=== PATIENT | female | born 2000 | race Caucasian/White ===

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

== ENCOUNTER 2024-07-13 08:34 | Inpatient (IN) ==
[2024-07-13] MEDS ORDERED: OXYTOCIN 30 UNITS/NSS 30 UNITS/500 ML BAG IV PRN (09:03)
[2024-07-13] MEDS ORDERED: LIDOCAINE 1% LOCAL 20 ML VIAL INFIL PRN (09:03)
--- NOTE | 2024-07-13 09:09 | History & Physical Report ---
Date of Service July 13, 2024 Assessment & Plan (1) Encounter for induction of labor: Plan admit,labs, iv. pitocin. fhts categ 1. epidural when desires. Admission and Anticipated Discharge Date Admission Date: July 13, 2024 History of Present Illness Chief Complaint: induction Primary Care Provider: Erin Taveras MD 23yo at 40+wks reyna presents to LD with above cc. She is ready for postdates induction. No rom, no vb. +FM. No ctx. Had some incr eased cramps overnight. PNC uncomplicated PNL rhpos, ri, gbs neg OBH: g1 GYNH: nl paps no stds. Allergies Allergy/AdvReac Type Severity Reaction Status Date / Time No Known Allergies Allergy Unverified 07/12/24 15:27 Home Medications Medication Instructions Recorded Confirmed Type PNV no.[id number] 1 tab PO DAILY 11/26/23 07/13/24 History [ Gummies] Patient History Medical History (Updated 07/13/24 @ 13:16 by Hafsa Membreno MD, FACOG) Asthma (12/18/12) Esophageal reflux (12/18/12) Varicella vaccination Kidney stones Surgical History (Updated 07/13/24 @ 09:46 by Leah Herrera, RN) Hx of adenoidectomy S/P myringotomy with insertion of tube (12/18/12) S/P wisdom tooth extraction Family History Aunt Breast cancer Denies family history of Ovarian cancer Prostate cancer Myocardial infarction Colorectal cancer Social History (Updated 11/26/23 @ 15:06 by Erin Calderon) Smoking Status: Never smoker Do You Dip or Chew Tobacco: No; Hx Alcohol Use: No Hx Substance Use: No Preferred Language: American Communication Ability: Effective Ux Designer Required: No Beliefs That Will Affect Care: None marital status: marital status details: Nitesh Cabrera (28) [phone] Current Living Situation: Spouse Current Living Situation Comment: lives with spouse, dog current occupational status: employed current occupation: [employer] Other Information That Helps Us Care for You: No Feels Safe at Home: Yes Safety Concerns: Feels Safe At This Time Review of Systems as per Subjective / HPI Physical Exam Constitutional: WD/WN, vitals as above Respiratory: normal respiratory effort, lungs clear to auscultation Cardiovascular: Rate/Rhythm: regular rate and regular rhythm Gastrointestinal (Abdomen): soft gravid nt efw 7-8# Musculoskeletal: no edema nontender calves Neurologic: grossly normal Psychiatric: A+Ox3, euthymic affect Genitourinary: Manual OB Exam: + cervical dilation (2-3), + cervical effacement 80%, + station -2 and + amniotic fluid (arom) clear OB Exam Monitor Tracing: + external FHT monitor used, + external uterine monitor used, + category I and + normal FHT variability Coding Level of Care Code None Diagnoses Encounter for induction of labor Z34.90
[2024-07-13 09:33] LABS: Hematocrit (blood only) 34.2 % (37.0-47.0); Hemoglobin 11.9 g/dl (12.0-16.0); Mean Corpuscular Hemoglobin 32.5 pg (25.0-34.0); Mean Corpuscular Hgb Conc 34.8 g/dL (32.0-36.0); Mean Corpuscular Volume 93.4 fL (80.0-100.0); Mean Platelet Volume 11.3 fL (9.4-12.4); Platelet Count 236 K/uL (130-400); RDW Coefficient of Variation 12.2 % (11.5-14.5); RDW Standard Deviation 42.2 fL (36.4-46.3); Red Blood Count 3.66 M/uL (4.20-5.40); White Blood Count 11.01 K/ul (4.8-10.8)
[2024-07-13] MEDS: OXYTOCIN 30 UNITS/NSS 30 UNITS/500 ML BAG IV PRN (10:24)
[2024-07-13] MEDS: LACTATED RINGER'S 1,000 ML IV SCH (11:15)
[2024-07-13] MEDS ORDERED: ePHEDrine sulfate 50 MG/ML AMP ONE (13:56)
--- NOTE | 2024-07-13 14:13 | Anesthesiology Consultation ---
Date of Service July 13, 2024 Assessment & Plan Chart Review Chart Review: Patient NOT seen in Pre Admission Testing and Acceptable Risk for Labor Epidural Consults Requested none ASA ASA2 Proposed Anesthesia Anesthesia Type: Labor Epidural Risk / Benefits Reviewed With: PT / POA / Parent / Guardian, Accepts Plan and Informed Consent Obtained History Height/Weight Height: 5 ft 3 in Weight: 82.1 kg Allergies Allergy/AdvReac Type Severity Reaction Status Date / Time No Known Allergies Allergy Unverified 07/12/24 15:27 Medications Home Medications Medication Instructions Recorded Confirmed Last Taken PNV no.[id number] 1 tab PO DAILY 11/26/23 07/13/24 07/13/24 08:00 [ Gummies] Active Medications Generic Name Dose Route Start Last Admin Trade Name Freq PRN Reason Stop Dose Admin Oxytocin 30 units in 500 mls @ 5 mls/hr 07/13/24 09:05 07/13/24 11:30 Pitocin 30 Units/Nss IV 07/15/24 09:04 0.3 units/hr .Q24H PRN 5 mls/hr Labor Induction/Augmentation Titration Protocol 0.3 UNITS/HR Lactated Ringer's 1,000 mls @ 75 mls/hr 07/13/24 11:15 07/13/24 14:00 Lr IV 07/14/24 11:14 999 mls/hr .[id number] FRANCO Infusion NPO Date Last Intake of Fluids: 07/13/24 Time Last Intake of Fluids: 14:00 Date Last Intake of Solids: 07/13/24 Time Last Intake of Solids: 11:45 Past Medical History Medical History (Updated 07/13/24 @ 13:16 by Hafsa Membreno MD, FACOG) Asthma (12/18/12) Esophageal reflux (12/18/12) Varicella vaccination Kidney stones Exercise / Class Metabolic Activity 1 > 8 Run/Swim/Ski/Tennis Past Family History Family History Aunt Breast cancer Denies family history of Ovarian cancer Prostate cancer Myocardial infarction Colorectal cancer Past Surgical History Surgical History (Updated 07/13/24 @ 09:46 by Leah Herrera RN) Hx of adenoidectomy S/P myringotomy with insertion of tube (12/18/12) S/P wisdom tooth extraction Past Anesthesia History No Hx of Anesthesia Complications and No Family Hx of Anesthesia Complications History of PONV No Hx of PONV and No Hx of Motion Sickness Social History Smoking Status: Never smoker Do You Dip or Chew Tobacco: No Hx Alcohol Use: No Hx Substance Use: No Review of Systems ROS Unobtainable: All systems reviewed & are unremarkable except as noted in HPI & below Physical Exam Vital Signs Last Vital Signs Temp 36.9 C 07/13/24 12:30 Pulse 86 07/13/24 13:14 Resp 20 07/13/24 13:30 BP 133/87 07/13/24 13:14 ENMT Mouth: no TMJ abnormality Thyromental Distance: > or= 3.5 Finger Breadths Mallampati Class: II Neck normal visual inspection and trachea midline; neck extension not limited Respiratory normal respiratory effort Auscultation: lungs clear to auscultation bilaterally Cardiovascular Rate/Rhythm: regular rate and regular rhythm Heart Sounds: no murmur Musculoskeletal Spine: normal cervical ROM Extremities: full ROM of extremities Neurologic moves all extremities Psychiatric Orientation: alert and oriented x 3 Testing Laboratory Results 07/13/24 09:14
[2024-07-13] MEDS ORDERED: ePHEDrine sulfate 50 MG/ML AMP IV PRN (14:14)
[2024-07-13] MEDS ORDERED: NALBUPHINE HCL INJ 10 MG/ML AMP IV PRN (14:14)
[2024-07-13] MEDS ORDERED: ROPIVACAINE 0.5% PF 5 MG/ML 20 ML VIAL EPI PRN (14:14)
[2024-07-13] MEDS ORDERED: NALOXONE HCL 1 MG in SODIUM CHLORIDE 0.9% 1,000 ML IV PRN (14:14)
[2024-07-13] MEDS ORDERED: diphenhydrAMINE 50 MG/ML VIAL IV PRN (14:14)
[2024-07-13] MEDS ORDERED: LIDOCAINE 2% MPF LOCAL 5 ML VIAL EPI PRN (14:14)
[2024-07-13] MEDS ORDERED: SODIUM CHLORIDE 0.9% PF INJ 10 ML VIAL EPI PRN (14:14)
[2024-07-13] MEDS ORDERED: NALOXONE HCL 0.4 MG/1 ML VIAL/CARP IV PRN (14:14)
[2024-07-13] MEDS: LIDOCAINE 2%/EPINEPHRINE 1:200,000 20 ML PF ONE (14:36)
[2024-07-13] MEDS: fentANYL 2 MCG/ML BUPIVacaine 0.125%-NSS 100ML BAG ONE (14:36)
[2024-07-13] MEDS: fentaNYL citrate PF 100 MCG/2 ML VIAL ONE (14:42)
[2024-07-13] MEDS: BUPIVACAINE 0.25% PF 30 ML VIAL ONE (14:42)
--- NOTE | 2024-07-13 15:48 | Labor Progress Brief Note ---
Date of Service July 13, 2024 Subjective comfortable with epidural Assessment & Plan (1) Encounter for induction of labor: Plan will plan to cont pitocin, fhts categ 1. Admission and Anticipated Discharge Date Admission Date: July 13, 2024 Physical Exam Constitutional: WD/WN, vitals as above Genitourinary: Manual OB Exam: + cervical dilation 3 cm, + cervical effacement 80% and + station -2 OB Exam Monitor Tracing: + external FHT monitor used, + external uterine monitor used (pit at 3), + category I and + normal FHT variability Results & Data Vital Signs (Past 12 Hours) Vital Signs Temp Pulse Resp BP Pulse Ox 07/13/24 15:42 74 108/69 97 07/13/24 15:37 72 97 07/13/24 15:32 74 97 07/13/24 15:30 16 07/13/24 15:30 16 07/13/24 15:28 75 107/67 07/13/24 15:27 73 98 07/13/24 15:22 82 97 07/13/24 15:17 78 98 07/13/24 15:12 86 98 07/13/24 15:11 95 H 101/72 07/13/24 15:07 75 98 07/13/24 15:06 76 100/65 07/13/24 15:02 78 92/50 L 99 07/13/24 15:00 16 07/13/24 15:00 98.1 F 16 07/13/24 14:57 93 H 98 07/13/24 14:55 107 H 105/56 L 07/13/24 14:53 96 H 104/61 07/13/24 14:52 88 99 07/13/24 14:51 81 113/59 L 07/13/24 14:50 16 07/13/24 14:50 16 07/13/24 14:49 93 H 104/62 07/13/24 14:47 99 07/13/24 14:47 91 H 07/13/24 14:47 99 H 107/66 07/13/24 14:45 85 18 108/67 07/13/24 14:43 76 113/65 07/13/24 14:42 98 H 100 07/13/24 14:41 88 111/68 07/13/24 14:40 16 07/13/24 14:40 16 07/13/24 14:39 86 113/65 07/13/24 14:37 89 113/63 100 07/13/24 14:35 85 123/65 07/13/24 14:33 86 128/76 07/13/24 14:32 82 L 07/13/24 14:32 91 H 07/13/24 14:32 95 H 93 07/13/24 14:31 90 137/91 07/13/24 14:29 76 137/87 07/13/24 14:27 88 100 07/13/24 14:22 121 H 100 07/13/24 14:20 93 H 139/76 07/13/24 14:18 93 H 91 07/13/24 14:17 89 100 07/13/24 14:12 93 H 100 07/13/24 13:30 20 07/13/24 13:30 20 07/13/24 13:14 86 133/87 07/13/24 13:00 20 07/13/24 13:00 20 07/13/24 12:30 98.4 F 07/13/24 12:26 72 123/79 07/13/24 11:31 76 113/69 07/13/24 11:30 98.1 F 07/13/24 10:28 105 H 113/78 07/13/24 09:50 97.5 F L 07/13/24 09:20 98.2 F 20 07/13/24 09:19 107 H 114/79 Coding Level of Care Code None Diagnoses Encounter for induction of labor Z34.90
--- NOTE | 2024-07-13 18:10 | Labor Progress Brief Note ---
Date of Service July 13, 2024 Subjective comfortable, did get a nap Assessment & Plan (1) Encounter for induction of labor: Plan some cx change. pitocin at 9, iupc placed to help guide use of pitocin. fhts categ 1. discussed iupc use and rationale to couple. Admission and Anticipated Discharge Date Admission Date: July 13, 2024 Physical Exam Constitutional: WD/WN, vitals as above Genitourinary: Manual OB Exam: + cervical dilation 4 cm, + cervical effacement 80% and + station -2 OB Exam Monitor Tracing: + external FHT monitor used, + external uterine monitor used, + category I and + normal FHT variability Results & Data Vital Signs (Past 12 Hours) Vital Signs Temp Pulse Resp BP Pulse Ox 07/13/24 18:06 90 90 07/13/24 18:02 77 100 07/13/24 18:00 18 07/13/24 18:00 18 07/13/24 17:59 87 89 L 07/13/24 17:57 83 100 07/13/24 17:52 93 H 100 07/13/24 17:49 99 H 91 07/13/24 17:47 80 100 07/13/24 17:43 91 H 88 L 07/13/24 17:42 84 98/61 L 100 07/13/24 17:38 84 92 07/13/24 17:37 91 H 98 07/13/24 17:32 97 H 100 07/13/24 17:30 16 07/13/24 17:30 98.4 F 16 07/13/24 17:27 87 L 07/13/24 17:27 98 H 07/13/24 17:27 104 H 93 07/13/24 17:22 86 99 07/13/24 17:17 90 99 07/13/24 17:13 85 113/77 07/13/24 17:12 78 99 07/13/24 17:07 77 99 07/13/24 17:02 71 99 07/13/24 17:00 16 07/13/24 17:00 16 07/13/24 16:58 72 115/73 07/13/24 16:57 81 98 07/13/24 16:52 75 98 07/13/24 16:47 67 98 07/13/24 16:43 76 117/78 07/13/24 16:42 73 98 07/13/24 16:37 74 98 07/13/24 16:32 70 98 07/13/24 16:28 80 117/77 07/13/24 16:27 82 98 07/13/24 16:22 73 98 07/13/24 16:17 73 98 07/13/24 16:13 80 113/72 07/13/24 16:12 85 98 07/13/24 16:07 73 98 07/13/24 16:02 75 98 07/13/24 16:00 18 07/13/24 16:00 18 07/13/24 15:57 77 109/69 98 07/13/24 15:52 79 97 07/13/24 15:47 79 97 07/13/24 15:42 74 108/69 97 07/13/24 15:37 72 97 07/13/24 15:32 74 97 07/13/24 15:30 16 07/13/24 15:30 16 07/13/24 15:28 75 107/67 07/13/24 15:27 73 98 07/13/24 15:22 82 97 07/13/24 15:17 78 98 07/13/24 15:12 86 98 07/13/24 15:11 95 H 101/72 07/13/24 15:07 75 98 07/13/24 15:06 76 100/65 07/13/24 15:02 78 92/50 L 99 07/13/24 15:00 16 07/13/24 15:00 98.1 F 16 07/13/24 14:57 93 H 98 07/13/24 14:55 107 H 105/56 L 07/13/24 14:53 96 H 104/61 07/13/24 14:52 88 99 07/13/24 14:51 81 113/59 L 07/13/24 14:50 16 07/13/24 14:50 16 07/13/24 14:49 93 H 104/62 07/13/24 14:47 99 07/13/24 14:47 91 H 07/13/24 14:47 99 H 107/66 07/13/24 14:45 85 18 108/67 07/13/24 14:43 76 113/65 07/13/24 14:42 98 H 100 07/13/24 14:41 88 111/68 07/13/24 14:40 16 07/13/24 14:40 16 07/13/24 14:39 86 113/65 07/13/24 14:37 89 113/63 100 07/13/24 14:35 85 123/65 07/13/24 14:33 86 128/76 07/13/24 14:32 82 L 07/13/24 14:32 91 H 07/13/24 14:32 95 H 93 07/13/24 14:31 90 137/91 07/13/24 14:29 76 137/87 07/13/24 14:27 88 100 07/13/24 14:22 121 H 100 07/13/24 14:20 93 H 139/76 07/13/24 14:18 93 H 91 07/13/24 14:17 89 100 07/13/24 14:12 93 H 100 07/13/24 13:30 20 07/13/24 13:30 20 07/13/24 13:14 86 133/87 07/13/24 13:00 20 07/13/24 13:00 20 07/13/24 12:30 98.4 F 07/13/24 12:26 72 123/79 07/13/24 11:31 76 113/69 07/13/24 11:30 98.1 F 07/13/24 10:28 105 H 113/78 07/13/24 09:50 97.5 F L 07/13/24 09:20 98.2 F 20 07/13/24 09:19 107 H 114/79 Coding Level of Care Code None Diagnoses Encounter for induction of labor Z34.90
[2024-07-13] MEDS: fentaNYL citrate PF 100 MCG/2 ML VIAL EPI STA (19:27)
[2024-07-13] MEDS: LIDOCAINE 2%/EPINEPHRINE 1:200,000 20 ML PF EPI STA (19:27)
[2024-07-13] MEDS: BUPIVACAINE 0.25% PF 30 ML VIAL EPI STA (19:27)
[2024-07-13] MEDS: SODIUM CHLORIDE 0.9% PF INJ 10 ML VIAL ONE (19:27)
[2024-07-13] MEDS: ACETAMINOPHEN 325 MG TAB PO ONE (19:34)
--- NOTE | 2024-07-13 19:38 | Labor Progress Brief Note ---
Date of Service July 13, 2024 Subjective comfortable, eating adelsollo Assessment & Plan (1) Encounter for induction of labor: Plan cont with pit to keep mvu's adequate. good cx change. fhts categ 1. Admission and Anticipated Discharge Date Admission Date: July 13, 2024 Physical Exam Constitutional: WD/WN, vitals as above Genitourinary: Manual OB Exam: + cervical dilation 6 cm, + cervical effacement 80% and + station -1 OB Exam Monitor Tracing: + external FHT monitor used, + intra-uterine pressure catheter used (mvus adeq, c/w pit), + category I and + normal FHT variability Results & Data Vital Signs (Past 12 Hours) Vital Signs Temp Pulse Resp BP Pulse Ox 07/13/24 19:34 89 91 07/13/24 19:32 96 H 98 07/13/24 19:27 85 99 07/13/24 19:23 80 93 07/13/24 19:22 77 100 07/13/24 19:17 80 96 07/13/24 19:15 80 90 07/13/24 19:12 72 100 07/13/24 19:07 74 88 L 07/13/24 19:06 87 89 L 07/13/24 19:02 79 100 07/13/24 18:58 76 119/87 07/13/24 18:57 78 100 07/13/24 18:52 70 100 07/13/24 18:47 73 100 07/13/24 18:43 70 116/71 07/13/24 18:42 70 100 07/13/24 18:37 86 99 07/13/24 18:32 77 100 07/13/24 18:30 20 07/13/24 18:30 98.1 F 20 07/13/24 18:28 68 110/61 07/13/24 18:27 73 100 07/13/24 18:22 71 100 07/13/24 18:17 91 H 96 07/13/24 18:14 77 91 07/13/24 18:13 71 115/61 07/13/24 18:12 72 99 07/13/24 18:07 78 100 07/13/24 18:06 90 90 07/13/24 18:02 77 100 07/13/24 18:00 18 07/13/24 18:00 18 07/13/24 17:59 87 89 L 07/13/24 17:57 83 100 07/13/24 17:52 93 H 100 07/13/24 17:49 99 H 91 07/13/24 17:47 80 100 07/13/24 17:43 91 H 88 L 07/13/24 17:42 84 98/61 L 100 07/13/24 17:38 84 92 07/13/24 17:37 91 H 98 07/13/24 17:32 97 H 100 07/13/24 17:30 16 07/13/24 17:30 98.4 F 16 07/13/24 17:27 87 L 07/13/24 17:27 98 H 07/13/24 17:27 104 H 93 07/13/24 17:22 86 99 07/13/24 17:17 90 99 07/13/24 17:13 85 113/77 07/13/24 17:12 78 99 07/13/24 17:07 77 99 07/13/24 17:02 71 99 07/13/24 17:00 16 07/13/24 17:00 16 07/13/24 16:58 72 115/73 07/13/24 16:57 81 98 07/13/24 16:52 75 98 07/13/24 16:47 67 98 07/13/24 16:43 76 117/78 07/13/24 16:42 73 98 07/13/24 16:37 74 98 07/13/24 16:32 70 98 07/13/24 16:28 80 117/77 07/13/24 16:27 82 98 07/13/24 16:22 73 98 07/13/24 16:17 73 98 07/13/24 16:13 80 113/72 07/13/24 16:12 85 98 07/13/24 16:07 73 98 07/13/24 16:02 75 98 07/13/24 16:00 18 07/13/24 16:00 18 07/13/24 15:57 77 109/69 98 07/13/24 15:52 79 97 07/13/24 15:47 79 97 07/13/24 15:42 74 108/69 97 07/13/24 15:37 72 97 07/13/24 15:32 74 97 07/13/24 15:30 16 07/13/24 15:30 16 07/13/24 15:28 75 107/67 07/13/24 15:27 73 98 07/13/24 15:22 82 97 07/13/24 15:17 78 98 07/13/24 15:12 86 98 07/13/24 15:11 95 H 101/72 07/13/24 15:07 75 98 07/13/24 15:06 76 100/65 07/13/24 15:02 78 92/50 L 99 07/13/24 15:00 16 07/13/24 15:00 98.1 F 16 07/13/24 14:57 93 H 98 07/13/24 14:55 107 H 105/56 L 07/13/24 14:53 96 H 104/61 07/13/24 14:52 88 99 07/13/24 14:51 81 113/59 L 07/13/24 14:50 16 07/13/24 14:50 16 07/13/24 14:49 93 H 104/62 07/13/24 14:47 99 07/13/24 14:47 91 H 07/13/24 14:47 99 H 107/66 07/13/24 14:45 85 18 108/67 07/13/24 14:43 76 113/65 07/13/24 14:42 98 H 100 07/13/24 14:41 88 111/68 07/13/24 14:40 16 07/13/24 14:40 16 07/13/24 14:39 86 113/65 07/13/24 14:37 89 113/63 100 07/13/24 14:35 85 123/65 07/13/24 14:33 86 128/76 07/13/24 14:32 82 L 07/13/24 14:32 91 H 07/13/24 14:32 95 H 93 07/13/24 14:31 90 137/91 07/13/24 14:29 76 137/87 07/13/24 14:27 88 100 07/13/24 14:22 121 H 100 07/13/24 14:20 93 H 139/76 07/13/24 14:18 93 H 91 07/13/24 14:17 89 100 07/13/24 14:12 93 H 100 07/13/24 13:30 20 07/13/24 13:30 20 07/13/24 13:14 86 133/87 07/13/24 13:00 20 07/13/24 13:00 20 07/13/24 12:30 98.4 F 07/13/24 12:26 72 123/79 07/13/24 11:31 76 113/69 07/13/24 11:30 98.1 F 07/13/24 10:28 105 H 113/78 07/13/24 09:50 97.5 F L 07/13/24 09:20 98.2 F 20 07/13/24 09:19 107 H 114/79 Coding Level of Care Code None Diagnoses Encounter for induction of labor Z34.90
[2024-07-13] MEDS: fentANYL 2 MCG/ML BUPIVacaine 0.125%-NSS 100ML BAG EPI PRN (22:34)
[2024-07-13] MEDS: SODIUM CHLORIDE 0.9% PF INJ 10 ML VIAL EPI STA (23:09)
[2024-07-13] MEDS: fentaNYL citrate PF 100 MCG/2 ML VIAL EPI PRN (23:09)
[2024-07-13] MEDS: BUPIVACAINE 0.25% PF 30 ML VIAL EPI PRN (23:09)
--- NOTE | 2024-07-13 23:27 | Anesthesia Procedure Note ---
Date of Service July 13, 2024 Anesthesia Epidural Re-Dose Vital Signs Temp Pulse Resp BP Pulse Ox 36.8 C 101 H 18 115/68 95 07/13/24 23:00 07/13/24 23:22 07/13/24 23:00 07/13/24 23:20 07/13/24 23:22 Notes Pain Intensity: 4 Dilatation (cm): 6.0 Effacement (%): 80 Called by nursing to evaluate epidural as the patient is having increased pain. The epidural was re-dosed with the following medications (all medications via epidural route) after negative aspiration of the epidural catheter for CSF/HEME. 0.2 Ropivacaine ml via epidural After Epidural Re-Dose Mental Status: alert / awake / arousable and participated in evaluation Pain: improving with treatment Airway Patency, RR, SpO2: stable & adequate BP & HR: stable & adequate Additional Notes: Redosed patient with 6 cc of 0.125% bupi and 100 mcg fentanyl with improvement of pain. HDS.
[2024-07-14] MEDS: ACETAMINOPHEN 325 MG TAB PO ONE (05:02)
--- NOTE | 2024-07-14 07:00 | Labor Progress Brief Note ---
Date of Service July 14, 2024 Subjective late entry, examined around 4am. comfortable. Assessment & Plan (1) Encounter for induction of labor: Plan rec position change, knee chest if possible to enc cephalic rotation and facilitate complete dilation. fhts categ 1. advised nursing to reexamine in one hr and start pushing if appropriate. Admission and Anticipated Discharge Date Admission Date: July 13, 2024 Physical Exam Constitutional: WD/WN, vitals as above Genitourinary: Manual OB Exam: + cervical dilation (ant lip OP), + cervical effacement 100% and + station (pushed x 1 ineffective and lip remained, lechuga had been removed. ) + 2 OB Exam Monitor Tracing: + external FHT monitor used, + intra-uterine pressure catheter used, + category I and + normal FHT variability Results & Data Vital Signs (Past 12 Hours) Vital Signs Temp Pulse Resp BP Pulse Ox 07/14/24 06:54 130 H 98 07/14/24 06:53 148 H 85 L 07/14/24 06:50 123 H 127/80 07/14/24 06:49 125 H 98 07/14/24 06:45 133 H 84 L 07/14/24 06:44 124 H 98 07/14/24 06:39 128 H 97 07/14/24 06:35 121 H 120/68 07/14/24 06:34 127 H 97 07/14/24 06:29 173 H 91 07/14/24 06:27 145 H 82 L 07/14/24 06:24 181 H 99 07/14/24 06:21 123 H 133/78 07/14/24 06:19 121 H 99 07/14/24 06:13 108 H 99 07/14/24 06:08 107 H 100 07/14/24 06:05 104 H 129/94 07/14/24 06:03 107 H 99 07/14/24 06:00 18 07/14/24 06:00 98.8 F 18 07/14/24 05:58 114 H 98 07/14/24 05:53 118 H 99 07/14/24 05:50 114 H 123/84 07/14/24 05:48 112 H 100 07/14/24 05:43 133 H 100 07/14/24 05:35 102 H 122/63 07/14/24 05:32 100 H 100 07/14/24 05:27 100 H 100 07/14/24 05:22 103 H 100 07/14/24 05:20 100 H 125/67 07/14/24 05:17 103 H 100 07/14/24 05:12 102 H 100 07/14/24 05:07 108 H 100 07/14/24 05:05 122/63 07/14/24 05:02 117 H 100 07/14/24 05:00 18 07/14/24 05:00 18 07/14/24 04:57 105 H 100 07/14/24 04:52 108 H 100 07/14/24 04:50 108 H 121/65 07/14/24 04:47 114 H 100 07/14/24 04:42 121 H 100 07/14/24 04:37 118 H 100 07/14/24 04:36 115 H 117/58 L 07/14/24 04:32 119 H 100 07/14/24 04:30 20 07/14/24 04:30 20 07/14/24 04:27 144 H 100 07/14/24 04:26 133 H 88 L 07/14/24 04:22 156 H 122/67 99 07/14/24 04:17 110 H 100 07/14/24 04:12 116 H 99 07/14/24 04:07 99 07/14/24 04:07 119 H 07/14/24 04:07 125 H 114/55 L 07/14/24 04:05 18 07/14/24 04:05 99.9 F H 18 07/14/24 04:02 124 H 100 07/14/24 03:57 119 H 100 07/14/24 03:52 113 H 99 07/14/24 03:50 115 H 124/75 07/14/24 03:47 120 H 100 07/14/24 03:42 113 H 100 07/14/24 03:37 113 H 100 07/14/24 03:35 114 H 125/73 07/14/24 03:32 113 H 100 07/14/24 03:27 111 H 100 07/14/24 03:22 111 H 100 07/14/24 03:21 111 H 125/78 07/14/24 03:17 109 H 100 07/14/24 03:12 114 H 100 07/14/24 03:07 111 H 100 07/14/24 03:05 110 H 121/75 07/14/24 03:02 112 H 100 07/14/24 03:00 18 07/14/24 03:00 18 07/14/24 02:57 111 H 100 07/14/24 02:52 110 H 100 07/14/24 02:50 113 H 126/78 07/14/24 02:47 115 H 100 07/14/24 02:42 114 H 100 07/14/24 02:37 100 07/14/24 02:37 119 H 07/14/24 02:37 120 H 137/75 07/14/24 02:35 126 H 87 L 07/14/24 02:32 98.4 F 143 H 18 95 07/14/24 02:30 18 07/14/24 02:30 18 07/14/24 02:27 109 H 99 07/14/24 02:22 111 H 99 07/14/24 02:20 108 H 116/65 07/14/24 02:17 106 H 97 07/14/24 02:12 114 H 98 07/14/24 02:07 106 H 99 07/14/24 02:05 110 H 122/70 07/14/24 02:02 108 H 98 07/14/24 02:00 18 07/14/24 02:00 18 07/14/24 01:57 107 H 98 07/14/24 01:52 111 H 98 07/14/24 01:50 111 H 119/73 07/14/24 01:47 111 H 98 07/14/24 01:42 111 H 99 07/14/24 01:37 109 H 99 07/14/24 01:36 117 H 109/73 07/14/24 01:32 114 H 100 07/14/24 01:27 106 H 98 07/14/24 01:22 109 H 98 07/14/24 01:21 108 H 118/67 07/14/24 01:17 104 H 99 07/14/24 01:12 110 H 100 07/14/24 01:07 112 H 99 07/14/24 01:02 135 H 99 07/14/24 01:01 118 H 86 L 07/14/24 01:00 18 07/14/24 01:00 18 07/14/24 00:57 110 H 94 07/14/24 00:52 111 H 96 07/14/24 00:51 110 H 123/76 07/14/24 00:47 108 H 96 07/14/24 00:42 108 H 94 07/14/24 00:37 106 H 95 07/14/24 00:36 111 H 129/80 07/14/24 00:32 112 H 95 07/14/24 00:30 18 07/14/24 00:30 18 07/14/24 00:27 110 H 94 07/14/24 00:22 105 H 93 07/14/24 00:21 109 H 128/80 07/14/24 00:20 18 07/14/24 00:20 98.2 F 18 07/14/24 00:17 130 H 97 07/14/24 00:12 116 H 98 07/14/24 00:07 93 H 96 07/14/24 00:06 87 115/68 07/14/24 00:02 93 H 95 07/14/24 00:00 18 07/14/24 00:00 18 07/13/24 23:57 89 96 07/13/24 23:52 91 H 96 07/13/24 23:50 90 112/68 07/13/24 23:47 87 96 07/13/24 23:42 88 96 07/13/24 23:37 90 96 07/13/24 23:35 92 H 110/68 07/13/24 23:32 96 H 96 07/13/24 23:30 18 07/13/24 23:30 18 07/13/24 23:27 98 H 96 07/13/24 23:22 101 H 95 07/13/24 23:20 97 H 115/68 07/13/24 23:17 98 07/13/24 23:17 121 H 07/13/24 23:17 108 H 116/80 07/13/24 23:14 96 H 114/74 07/13/24 23:12 103 H 98 07/13/24 23:11 97 H 117/77 07/13/24 23:07 110 H 100 07/13/24 23:04 116 H 91 07/13/24 23:02 110 H 98 07/13/24 23:00 18 07/13/24 23:00 18 07/13/24 23:00 18 07/13/24 23:00 98.2 F 18 07/13/24 22:58 98 H 106/60 07/13/24 22:57 96 H 97 07/13/24 22:52 97 H 99 07/13/24 22:47 108 H 98 07/13/24 22:42 98 07/13/24 22:42 109 H 07/13/24 22:42 113 H 123/79 07/13/24 22:37 116 H 99 07/13/24 22:32 121 H 98 07/13/24 22:27 106 H 127/80 98 07/13/24 22:22 101 H 98 07/13/24 22:17 99 H 99 07/13/24 22:13 108 H 129/81 07/13/24 22:12 101 H 99 07/13/24 22:07 96 H 99 07/13/24 22:02 97 H 99 07/13/24 21:57 98 H 124/78 100 07/13/24 21:52 97 H 100 07/13/24 21:47 95 H 100 07/13/24 21:42 103 H 123/79 99 07/13/24 21:37 97 H 100 07/13/24 21:36 116 H 94 07/13/24 21:32 116 H 99 07/13/24 21:30 18 07/13/24 21:30 98.6 F 18 07/13/24 21:29 108 H 91 07/13/24 21:27 100 H 115/71 99 07/13/24 21:22 99 H 99 07/13/24 21:17 106 H 100 07/13/24 21:14 99 H 119/74 07/13/24 21:12 104 H 100 07/13/24 21:07 102 H 100 07/13/24 21:02 101 H 100 07/13/24 21:00 18 07/13/24 21:00 18 07/13/24 20:58 99 H 120/77 07/13/24 20:57 104 H 100 07/13/24 20:52 100 H 100 07/13/24 20:47 103 H 100 07/13/24 20:43 93 H 123/76 07/13/24 20:42 91 H 100 07/13/24 20:37 89 100 07/13/24 20:35 92 H 90 07/13/24 20:32 111 H 100 07/13/24 20:30 16 07/13/24 20:30 16 07/13/24 20:28 115 H 115/74 07/13/24 20:27 117 H 91 07/13/24 20:25 98.4 F 07/13/24 20:22 111 H 100 07/13/24 20:19 111 H 90 07/13/24 20:17 108 H 87 L 07/13/24 20:14 107 H 93 07/13/24 20:13 109 H 126/83 07/13/24 20:12 92 H 98 07/13/24 20:07 80 99 07/13/24 20:02 81 100 07/13/24 20:00 18 07/13/24 20:00 18 07/13/24 19:59 85 126/71 07/13/24 19:57 86 100 07/13/24 19:52 94 H 100 07/13/24 19:47 88 100 07/13/24 19:42 100 07/13/24 19:42 97 H 07/13/24 19:42 55 L 123/85 07/13/24 19:40 88 89 L 07/13/24 19:37 100 H 92 07/13/24 19:34 89 91 07/13/24 19:32 96 H 98 07/13/24 19:30 18 07/13/24 19:30 98.1 F 18 07/13/24 19:27 85 99 07/13/24 19:23 80 93 07/13/24 19:22 77 100 07/13/24 19:17 80 96 07/13/24 19:15 80 90 07/13/24 19:12 72 100 07/13/24 19:07 74 88 L 07/13/24 19:06 87 89 L 07/13/24 19:02 79 100 Coding Level of Care Code None Diagnoses Encounter for induction of labor Z34.90
--- NOTE | 2024-07-14 08:25 | Delivery Summary ---
Vaginal Delivery Summary Date of Service July 14, 2024 Vaginal Delivery Summary and 2nd Degree LAC The patient dilated to complete and pushed to deliver a viable male infant Apgars 4, 7, 8 via over 2nd degree perineal laceration. Possible shoulder dystocia encountered relieved with gentle downward traction, maternal expulsive efforts and McRobert's maneuvers. Body cord noted as well as meconium stained fluid. Shoulders and body delivered with ease. Infant was not vigorous and limp and therefore cord rapidly clamped and to maternal abdomen where cord was then doubly clamped and cut. to radiant warmer for resuscitation. Placenta not delivered spontaneously and therefore at >20min from delivery, manual extraction of placenta took place. One additional sweep of uterus, demonstrated no retained products. Hemostasis achieved with dilute pitocin and uterine massage and drainage of the bladder for approximately 25 cc under sterile conditions. Cervix and sulci intact. Laceration repaired in routine fashion with 3-0 vicryl. QBL 606 cc. Mother and baby stable in recovery. [facility] Vaginal Delivery Charge Delivery Type Details: and 2nd Degree LAC
[2024-07-14 08:35] LABS: CO2 Cord Arterial Blood 71 mmHg (39.1-73.5); Oxygen Sat Cord Arterial Blood < 60.0 % (<60); PO2 Cord Arterial Blood < 20 mmHg (4.1-31.7); pH Cord Arterial Blood < 7.00 (7.1-7.38)
[2024-07-14 08:36] LABS: Base Excess Cord Venous Blood -14.9 mEq/L (-7.7-1.9); Cord Venous Blood HCO3 16 mmol/L (18.4-26.8); Cord Venous Blood PCO2 55 mmHg (30.4-57.2); Cord Venous Blood PO2 23 mmHg (14.1-43.3); Cord Venous Blood pH 7.06 (7.20-7.44); O2 Saturation Cord Venous Bld < 60.0 % (<68)
[2024-07-14] MEDS ORDERED: HYDROCORTISONE ACETATE 25 MG SUPP PR PRN (08:45)
[2024-07-14] MEDS ORDERED: ACETAMINOPHEN 325 MG TAB PO PRN (08:45)
[2024-07-14] MEDS ORDERED: oxyCODONE/ACETAMINOPHEN 5mg/325mg TAB PO PRN (08:45)
[2024-07-14] MEDS ORDERED: DIPHTHER/TETAN/PERTUS Vaccine (Tdap, Adol/Adult) 0.5mL IM ONE (08:45)
[2024-07-14] MEDS ORDERED: OXYTOCIN 30 UNITS/NSS 30 UNITS/500 ML BAG IV PRN (08:45)
--- NOTE | 2024-07-14 09:38 | Anesthesia Procedure Note ---
Date of Service July 14, 2024 Anesthesia Post Epidural Note Vital Signs Vital Signs: Temp Pulse Resp BP Pulse Ox 98.2 F 111 H 20 127/80 98 07/14/24 06:55 07/14/24 09:27 07/14/24 09:27 07/14/24 09:27 07/14/24 08:24 Pain Intensity Bilateral Abdomen: Pain Intensity: 4 Notes Mental Status: alert / awake / arousable and participated in evaluation Nausea / Vomiting: adequately controlled Pain: adequately controlled Airway Patency, RR, SpO2: stable & adequate BP & HR: stable & adequate Hydration State: stable & adequate Neuraxial Anesthesia: was administered and sensory block is resolving Anesthetic Complications: no major complications apparent and Pt Satisfied with anesthetic care Epidural: Removed without complications and With tip intact
[2024-07-14] MEDS: BENZOCAINE 20% SPRY 85 APPLN/85 GM CAN EXT PRN (10:10)
[2024-07-14] MEDS: IBUPROFEN 600 MG TAB PO PRN (10:10)
[2024-07-14] MEDS: ceFAZolin 2000MG 2,000 MG/15 ML SYR IV SCH (10:11)
[2024-07-14 18:00] VITALS: RESP 16
[2024-07-14] MEDS ORDERED: DOCUSATE SODIUM 100 MG CAP PO SCH (21:00)
--- NOTE | 2024-07-15 05:45 | Obstetrical Progress Note ---
Date of Service <Mino Blackburn MD - Last Filed: 07/15/24 07:05> July 15, 2024 Assessment & Plan <Mino Blackburn MD - Last Filed: 07/15/24 07:05> (1) care and examination: PPD#1 after term . Rh+, rubella equivocal, gbs neg Stable, continue routine care, continue OOB and ambulation, diet as tolerated Would like DC today to be w son <Minal Vázquez MD - Last Filed: 07/15/24 07:50> (1) care and examination: Subjective <Mino Blackburn MD - Last Filed: 07/15/24 07:05> Marcelle is a 23 y/o female who is PPD#1 following at 40+ weeks. Minimal abd pain/cramping, hasn't been needing analgesics Is voiding, tolerating meals, and ambulating normally Having appropriate lochia Planning for breast & bottle feeding. Constitutional: no fever, no chills or no sweats Respiratory: no dyspnea Cardiovascular: no chest pain, no palpitations or no calf pain Breast: no breast pain Gastrointestinal: no nausea or no vomiting Genitourinary (female): no dysuria Neurologic: no headache(s) no changes in vision, no headaches Physical Exam <Mino Blackburn MD - Last Filed: 07/15/24 07:05> General: Alert, oriented. No acute distress. Cardiac: Regular rate and rhythm, no murmurs, rubs, or gallops. Respiratory: Clear to auscultation bilaterally. No increased work of breathing. Symmetrical chest rise. No respiratory distress. Abdomen: Soft, nontender, nondistended. Bowel sounds present. Uterus: Uterine fundus firm, nontender. Lower extremities: No lower extremity edema or swelling. No deep calf pain. Results & Data <Mino Blackburn MD - Last Filed: 07/15/24 07:05> Vital Signs (Past 12 Hours) Vital Signs Temp Pulse Resp BP Pulse Ox O2 Del Method 07/14/24 23:07 36.9 C 84 16 109/69 98 Room Air 07/14/24 19:07 36.7 C 86 16 120/79 95 Room Air Laboratory Results 07/15/24 06:17 Supervising Physician <Minal Vázquez MD - Last Filed: 07/15/24 07:50> Co-Signing Physician Notes Resident Physician Supervision Note: I interviewed and examined the patient. Discussed with Dr. Blackburn and agree with findings and plan as documented in the note. Any exceptions or clarifications are listed here: Discussed with patient plan for D/C today. She will be traveling directly to [facility] [place] be with son Joel in NICU. Discussed pain management, s/s to watch for, and emotional support offered for difficult and stressful situation with infant needing extra care. Contact our office number to reach after-hours MD if any needs. Documented By: Minal Vázquez MD, FACOG Resident Activity Tracking <Mino Blackburn MD - Last Filed: 07/15/24 07:05> Resident Involvement: Resident Care Provided Care Provided: Adult Hospital Medicine and OB Delivery
[2024-07-15 06:50] LABS: Hematocrit (blood only) 26.4 % (37.0-47.0); Hemoglobin 9.1 g/dl (12.0-16.0)
[2024-07-15 07:40] VITALS: BP 116/73; PULSE 103; TEMP 98.2; O2SAT 97
[2024-07-15] MEDS ORDERED: PRENATAL VITAMIN 1 TAB PO SCH (08:00)
[2024-07-15] MEDS ORDERED: bisacodyL 5 MG TABEC PO SCH (20:00)
== END 2024-07-15 08:04 | disposition home or self-care (01) | DRG 807 ==
LOC: 4S1 08:34 → 4E2 07-14 10:50